=== PATIENT | male | born 1990 | race Caucasian/White ===

== ENCOUNTER 2018-06-23 13:30 | Emergency (ER) | payer SELFPAY ==
[~2018-06-23] VITALS: Ht 188 cm; Wt 98.0 kg
[2018-06-23] MEDS ORDERED: SODIUM CHLORIDE 0.9% 1,000 ML IV ONE (14:01)
[2018-06-23] MEDS ORDERED: LEVETIRACETAM 1000MG/100ML 100 ML IV ONE (14:15)
[2018-06-23] MEDS ORDERED: CHLORDIAZEPOXIDE 25MG CAPSULE PO ONE (14:15)
[2018-06-23] MEDS ORDERED: LORAZEPAM 2MG/ML CPJ IV ONE (14:15)
[2018-06-23 15:41] VITALS: BP 137/74
[2018-06-23 15:41] LABS: CHLORIDE 110 mEq/L (98-107)
[2018-06-23 15:43] LABS: BASOPHILS % 1.9 % (0.0-2.0); EOSINOPHILS % 9.4 % (0.0-5.0); HEMOGLOBIN. 14.8 g/dL (14.0-18.0); LYMPHOCYTES % 41.6 % (20.0-50.0); MEAN CORPUSCULAR HEMOGLOBIN 33.2 pg (28.0-32.0); MEAN CORPUSCULAR VOLUME 96.5 fL (80.0-94.0); MEAN PLATELET VOLUME 7.4 fl (7.4-10.4); MONOCYTES % 6.4 % (2.0-8.0); NEUTROPHILS % 40.7 % (40.0-76.0); PLATELET 318 x1000/uL (130-400); PROTHROMBIN TIME 10.1 sec (9.1-11.1); RED BLOOD CELL COUNT 4.46 mill/uL (4.7-6.1); RED CELL DISTRIBUTION WIDTH 14.7 % (11.6-14.6)
[2018-06-23 15:45] LABS: ETHANOL BLOOD 251 mg/dL
[2018-06-23 15:49] LABS: CREATINE KINASE 186 IU/L (39-308)
[2018-06-23] MEDS ORDERED: NICOTINE 21MG PATCH TD ONE (16:15)
== END 2018-06-23 16:11 | disposition left against medical advice (07) ==
LOC: ER 13:30 → EDBEDREQ 15:05 → ER 16:11 → CANBEDREQ 17:25
DX: F10.239 Alcohol dependence with withdrawal, unspecified (principal); R56.9 Unspecified convulsions; E87.8 Other disorders of electrolyte and fluid balance, not elsewhere classified; Z72.0 Tobacco use; Y90.8 Blood alcohol level of 240 mg/100 ml or more
CPT/HCPCS: 70450; 70486; 71045; 72125; 80053; 82550; 83690; 83735; 85025; 85610; 93005; 96365; 96375; 99285; G0482; J1953; J2060; J7030